=== PATIENT | female | born 1990 | race African-American/Black ===

== ENCOUNTER 2019-11-02 20:36 | Inpatient (IN) ==
[2019-11-02] MEDS ORDERED: ONDANSETRON 4 MG/2 ML VIAL IV ONE (21:39)
[2019-11-02] MEDS ORDERED: LACTATED RINGERS 1,000 ML IV ONE (21:39)
[2019-11-02] MEDS ORDERED: MEPERIDINE 50 MG/1 ML VIAL IV ONE (21:39)
[2019-11-03] MEDS ORDERED: MEPERIDINE 50 MG/1 ML VIAL IV PRN (00:07)
[2019-11-03] MEDS ORDERED: LACTATED RINGERS 1,000 ML IV SCH ×2 (00:30→02:00)
[2019-11-03] MEDS ORDERED: ONDANSETRON 4 MG/2 ML VIAL IV PRN (01:39)
[2019-11-03] MEDS ORDERED: CITRIC ACID/SODIUM CITRATE 30 ML UDCUP PO ONE (01:44)
[2019-11-03] MEDS ORDERED: NALOXONE 0.4 MG/ML VIAL IV PRN (01:44)
[2019-11-03] MEDS ORDERED: FAMOTIDINE 20 MG/2 ML VIAL IV ONE (01:44)
[2019-11-03] MEDS ORDERED: diphenhydrAMINE 50 MG/1 ML VIAL IV PRN ×2 (01:44)
[2019-11-03] MEDS ORDERED: hydrOXYzine HCL 25 MG/1 ML VIAL IM PRN (01:44)
[2019-11-03] MEDS ORDERED: ONDANSETRON 4 MG/2 ML VIAL IV ONE (01:44)
[2019-11-03] MEDS ORDERED: PROMETHAZINE 25 MG/1 ML VIAL IM ONE (01:44)
[2019-11-03] MEDS ORDERED: ePHEDrine 50 MG/ML VIAL IV PRN (01:44)
[2019-11-03] MEDS ORDERED: fentaNYL 2 MCG/ROPIV 0.2% EPID 100 ML EPIDURAL SCH (02:00)
[2019-11-03] MEDS ORDERED: ALUMINUM/MAGNES/SIMETH MAX STR 30 ML UDCUP PO PRN (02:11)
[2019-11-03 02:13] LABS: Basophils % 0.1 % (0.0-0.8); Hematocrit 30.4 VOL% (35.7-47.0); Hemoglobin 9.3 GM/DL (12.0-16.0); Immature Granulocytes % 0.8 %; Immature Granulocytes Absolute 0.06 #; Lymphocytes # 0.6 10*3/uL (1.4-4.0); Lymphocytes % 7.1 % (21.3-54.2); Mean Corpuscular HGB Conc 30.6 GM/DL (32-36); Mean Corpuscular Volume 78.8 FL (87-102); Mean Platelet Volume 10.2 FL (9.6-12.0); Monocytes % 2.4 % (1.7-12.7); Neutrophils % 89.6 % (38.7-73.9); Platelet Count 343 T/CUMM (130-400); Red Blood Count 3.86 MC/CUMM (3.8-5.5); Red Cell Distribution Width 15.9 % (9.3-17.3)
[2019-11-03 02:39] LABS: Alanine Aminotransferase 25 U/L (13-56); Albumin 2.5 G/DL (3.4-5.0); Alkaline Phosphatase 196 U/L (45-117); Aspartate Amino Transferase 24 U/L (0-37); Bilirubin,Total < 0.39 MG/DL (0.2-1.0); Blood Urea Nitrogen 7 MG/DL (7-18); Calcium 9.4 MG/DL (8.5-10.1); Estimated Glom Filtration Rate 157 ML/MIN; Glucose 89 MG/DL (74-106); Osmolality,Calculated 269.8 MOS/KG (273-304); Total Protein 7.3 G/DL (6.4-8.3)
[2019-11-03 04:57] LABS: Apearance,Urine CLEAR (Clear); Bilirubin,Urine Negative (Negative); Blood, Urine Negative (Negative); Glucose,Urine (UA) Negative (Negative); Ketones,Urine 80 mg/dL (Negative); Mucus,Urine Occasional /LPF (Occasional); Nitrite,Urine Negative (Negative); Protein,Urine Negative; Squamous Epithelial Cell,Urine Occasional /HPF (0-10); Urine Color Yellow (Yellow); Urine Specific Gravity 1.014 (1.001-1.035); Urine Urobilinogen < 2.0 EU/DL (0.2-1.0)
[2019-11-03] MEDS ORDERED: CARBOPROST TROMETHAMINE 250 MCG/ML AMP IM ONE (06:31)
[2019-11-03] MEDS ORDERED: TRANEXAMIC ACID 1,000 MG/10 ML VIAL ONE (06:31)
[2019-11-03] MEDS ORDERED: miSOPROStoL 200 MCG TABLET ONE (06:31)
[2019-11-03] MEDS ORDERED: METHYLERGONOVINE 0.2 MG/1 ML AMP ONE (06:31)
[2019-11-03] MEDS ORDERED: OXYTOCIN/LR 20 UNIT/1,000 ML BAG IV ONE ×2 (06:31→09:21)
[2019-11-03 07:19] LABS: Cord Arterial Blood HCO3 13.5 MMOL/L; Cord Venous Blood HCO3 19.2 MMOL/L; Cord Venous Blood PCO2 56.5 MMHG; Cord Venous Blood PO2 25.6 MMHG
[2019-11-03] MEDS ORDERED: ACETAMINOPHEN 325 MG TABLET PO PRN (09:21)
[2019-11-03] MEDS ORDERED: RHO(D) IMMUNE GLOBULIN 300 MCG SYRINGE IM ONE (09:21)
[2019-11-03] MEDS ORDERED: LANOLIN 50% CREAM 0.3 OZ TUBE TOP PRN (09:21)
[2019-11-03] MEDS ORDERED: BISACODYL 10 MG SUPP RECTAL PRN (09:21)
[2019-11-03] MEDS ORDERED: BENZOCAINE 20%/MENTHOL 0.5% SPRAY 56 GM CAN TOP PRN (09:21)
[2019-11-03] MEDS ORDERED: WITCH HAZEL PADS 100/JAR TOP PRN (09:21)
[2019-11-03] MEDS ORDERED: MEASLES/MUMPS/RUBELLA VACCINE 0.5 ML VIAL SUBCUT ONE (09:21)
[2019-11-03] MEDS ORDERED: HYDROCORTISONE 2.5% RECTAL CREAM 30 GM TUBE TOP PRN (09:21)
[2019-11-03] MEDS ORDERED: oxyCODONE/ACETAMINOPHEN 5-325 MG TABLET PO PRN (09:21)
[2019-11-03] MEDS ORDERED: DIPH/TET/ACEL PERT BOOSTER VACCINE 0.5 ML VIAL IM ONE (09:21)
[2019-11-03] MEDS: IBUPROFEN 800 MG TABLET PO PRN ×2 (13:35→21:41)
[2019-11-03] MEDS: ALUMINUM/MAGNES/SIMETH MAX STR 30 ML UDCUP PO PRN (19:36)
[2019-11-04 05:56] LABS: Basophils % 0.4 % (0.0-0.8); Eosinophils # 0.1 10*3/uL (0.0-0.87); Eosinophils % 0.8 % (0.00-10.9); Hematocrit 28.2 VOL% (35.7-47.0); Hemoglobin 8.8 GM/DL (12.0-16.0); Immature Granulocytes % 0.7 %; Immature Granulocytes Absolute 0.07 #; Lymphocytes # 1.6 10*3/uL (1.4-4.0); Lymphocytes % 16.2 % (21.3-54.2); Mean Corpuscular HGB Conc 31.2 GM/DL (32-36); Mean Corpuscular Volume 78.3 FL (87-102); Mean Platelet Volume 10.4 FL (9.6-12.0); Monocytes % 6.7 % (1.7-12.7); Neutrophils % 75.2 % (38.7-73.9); Platelet Count 316 T/CUMM (130-400); Red Cell Distribution Width 16.1 % (9.3-17.3); White Blood Count 9.7 T/CUMM (4-12)
[2019-11-04] MEDS: IBUPROFEN 800 MG TABLET PO PRN (08:53)
[2019-11-04] MEDS: DOCUSATE SODIUM 100 MG CAPSULE PO SCH ×2 (09:10→21:06)
[2019-11-04] MEDS: FERROUS SULFATE 325 MG TABLET PO SCH ×2 (09:10→21:06)
[2019-11-04] MEDS: ALUMINUM/MAGNES/SIMETH MAX STR 30 ML UDCUP PO PRN (22:32)
[2019-11-04] MEDS: PANTOPRAZOLE 40 MG TABLET PO SCH (22:33)
[2019-11-04] MEDS: BUTALBITAL/ACETAMIN/CAFFEINE 50-325-40 MG TABLET PO PRN (22:33)
[2019-11-05] MEDS: IBUPROFEN 800 MG TABLET PO PRN ×2 (02:37→17:40)
[2019-11-05] MEDS: ALUMINUM/MAGNES/SIMETH MAX STR 30 ML UDCUP PO PRN ×2 (02:37→23:09)
[2019-11-05] MEDS: oxyCODONE/ACETAMINOPHEN 5-325 MG TABLET PO PRN ×2 (02:38→17:40)
[2019-11-05] MEDS: PANTOPRAZOLE 40 MG TABLET PO SCH (08:58)
[2019-11-05] MEDS: FERROUS SULFATE 325 MG TABLET PO SCH ×2 (08:58→19:30)
[2019-11-05] MEDS: DOCUSATE SODIUM 100 MG CAPSULE PO SCH ×2 (08:58→20:06)
[2019-11-05] MEDS ORDERED: NEOSTIGMINE 10 MG/10 ML VIAL IV ONE (09:03)
[2019-11-05] MEDS ORDERED: ATROPINE 1 MG/10 ML SYRINGE IV ONE (09:09)
[2019-11-05] MEDS ORDERED: ATROPINE 0.4 MG/1 ML VIAL ONE (09:18)
[2019-11-05] MEDS ORDERED: NEOSTIGMINE 10 MG/10 ML VIAL ONE (09:18)
[2019-11-05] MEDS: BUTALBITAL/ACETAMIN/CAFFEINE 50-325-40 MG TABLET PO PRN (11:36)
[2019-11-05] MEDS ORDERED: SODIUM CHLORIDE 0.9% 250 ML IV ONE (13:22)
[2019-11-05] MEDS ORDERED: SODIUM CHLORIDE 0.9% 1,000 ML IV SCH (13:30)
[2019-11-05] MEDS ORDERED: MIDAZOLAM 2 MG/2 ML VIAL ONE (15:02)
[2019-11-06] MEDS: IBUPROFEN 800 MG TABLET PO PRN (04:22)
[2019-11-06 07:56] VITALS: BP 126/87
[2019-11-06] MEDS: DOCUSATE SODIUM 100 MG CAPSULE PO SCH (09:56)
[2019-11-06] MEDS: PANTOPRAZOLE 40 MG TABLET PO SCH (11:00)
[2019-11-06] MEDS: FERROUS SULFATE 325 MG TABLET PO SCH (11:00)
== END 2019-11-06 16:45 | disposition home or self-care (01) | DRG 560 ==
LOC: N.LDOUT 20:36 → N.LD 20:38 → N.OB 11-03 12:11
PROVIDERS: ADMIT Obstetrics & Gynecology; ATTEND Obstetrics & Gynecology

== ENCOUNTER 2021-03-24 01:49 | Inpatient (IN) ==
[2021-03-24] MEDS ORDERED: ONDANSETRON 4 MG/2 ML VIAL IV PRN ×2 (02:10→15:24)
[2021-03-24] MEDS ORDERED: MEPERIDINE 50 MG/1 ML VIAL IV PRN (02:10)
[2021-03-24 02:48] LABS: Basophils % 0.3 % (0.0-0.8); Eosinophils # 0.1 10*3/uL (0.0-0.87); Eosinophils % 1.1 % (0.00-10.9); Hematocrit 32.8 VOL% (35.7-47.0); Hemoglobin 10.6 GM/DL (12.0-16.0); Immature Granulocytes Absolute 0.07 #; Lymphocytes # 1.3 10*3/uL (1.4-4.0); Lymphocytes % 18.4 % (21.3-54.2); Mean Corpuscular HGB Conc 32.3 GM/DL (32-36); Mean Corpuscular Volume 82.2 FL (87-102); Mean Platelet Volume 9.9 FL (9.6-12.0); Monocytes % 6.3 % (1.7-12.7); Neutrophils % 72.9 % (38.7-73.9); Platelet Count 307 T/CUMM (130-400); Red Blood Count 3.99 MC/CUMM (3.8-5.5); Red Cell Distribution Width 15.5 % (9.3-17.3); White Blood Count 7.2 T/CUMM (4-12)
[2021-03-24] MEDS ORDERED: ALUMINUM/MAGNES/SIMETH MAX STR 30 ML UDCUP PO PRN (02:52)
[2021-03-24] MEDS: LACTATED RINGERS 1,000 ML IV SCH ×3 (02:53→13:31)
[2021-03-24] MEDS: OXYTOCIN/LR 20 UNIT/1,000 ML BAG IV SCH ×2 (03:04→08:04)
[2021-03-24 06:57] LABS: Albumin 2.7 G/DL (3.4-5.0); Bilirubin,Total 0.9 MG/DL (0.20-1.00); Osmolality,Calculated 268.8 MOS/KG (273-304); Potassium 3.5 MMOL/L (3.5-5.1); Total Protein 7.1 G/DL (6.4-8.2)
[2021-03-24] MEDS ORDERED: NALOXONE 0.4 MG/ML VIAL IV PRN (08:23)
[2021-03-24] MEDS ORDERED: CITRIC ACID/SODIUM CITRATE 30 ML UDCUP PO ONE (08:23)
[2021-03-24] MEDS ORDERED: FAMOTIDINE 20 MG/2 ML VIAL IV ONE (08:23)
[2021-03-24] MEDS ORDERED: diphenhydrAMINE 50 MG/1 ML VIAL IV PRN ×2 (08:23)
[2021-03-24] MEDS ORDERED: LACTATED RINGERS 1,000 ML IV ONE (08:23)
[2021-03-24] MEDS ORDERED: fentaNYL 2 MCG/ROPIV 0.2% EPID 100 ML EPIDURAL SCH (08:30)
[2021-03-24] MEDS: ePHEDrine 50 MG/ML VIAL IV PRN ×2 (09:51→10:02)
[2021-03-24 11:26] LABS: Bilirubin,Urine Negative (Negative); Blood, Urine Negative (Negative); Glucose,Urine (UA) Negative (Negative); Ketones,Urine 20 mg/dL (Negative); Mucus,Urine Occasional /LPF (Occasional); Nitrite,Urine Negative (Negative); Protein,Urine Negative; RBC,Urine <1 /HPF (0-4); Squamous Epithelial Cell,Urine Occasional /HPF (0-10); Urine Appearance CLEAR (Clear); Urine Color Yellow (Yellow); Urine Specific Gravity 1.008 (1.001-1.035); Urine Urobilinogen < 2.0 EU/DL (0.2-1.0)
[2021-03-24] MEDS ORDERED: BUTORPHANOL 2 MG/ML VIAL IV PRN (13:45)
[2021-03-24] MEDS ORDERED: miSOPROStoL 200 MCG TABLET ONE (14:26)
[2021-03-24] MEDS ORDERED: TRANEXAMIC ACID 1,000 MG/10 ML VIAL ONE (14:26)
[2021-03-24] MEDS ORDERED: CARBOPROST TROMETHAMINE 250 MCG/ML AMP IM ONE (14:27)
[2021-03-24] MEDS ORDERED: METHYLERGONOVINE 0.2 MG/1 ML AMP ONE (14:27)
[2021-03-24] MEDS ORDERED: fentaNYL 100 MCG/2 ML VIAL ONE (14:51)
[2021-03-24] MEDS ORDERED: LIDOCAINE MPF 2% /EPI 20 ML VIAL ONE (14:51)
[2021-03-24] MEDS ORDERED: METHYLERGONOVINE 0.2 MG/1 ML AMP IM ONE (15:14)
[2021-03-24] MEDS ORDERED: oxyCODONE/ACETAMINOPHEN 5-325 MG TABLET PO PRN (15:24)
[2021-03-24] MEDS ORDERED: RHO(D) IMMUNE GLOBULIN 300 MCG SYRINGE IM ONE (15:24)
[2021-03-24] MEDS ORDERED: DIPH/TET/ACEL PERT BOOSTER VACCINE 0.5 ML VIAL IM ONE (15:24)
[2021-03-24] MEDS ORDERED: WITCH HAZEL PADS 100/JAR TOP PRN (15:24)
[2021-03-24] MEDS ORDERED: LANOLIN 50% CREAM 0.3 OZ TUBE TOP PRN (15:24)
[2021-03-24] MEDS ORDERED: HYDROCORTISONE 2.5% RECTAL CREAM 30 GM TUBE TOP PRN (15:24)
[2021-03-24] MEDS ORDERED: OXYTOCIN/LR 20 UNIT/1,000 ML BAG IV ONE (15:24)
[2021-03-24] MEDS ORDERED: BISACODYL 10 MG SUPP RECTAL PRN (15:24)
[2021-03-24] MEDS ORDERED: ACETAMINOPHEN 325 MG TABLET PO PRN (15:24)
[2021-03-24] MEDS ORDERED: MEASLES/MUMPS/RUBELLA VACCINE 0.5 ML VIAL SUBCUT ONE (15:24)
[2021-03-24] MEDS ORDERED: BENZOCAINE 20%/MENTHOL 0.5% SPRAY 56 GM CAN TOP PRN (15:24)
[2021-03-24 15:41] LABS: Cord Venous Blood PCO2 37.5 MMHG; Cord Venous Blood PO2 34.8
[2021-03-24] MEDS ORDERED: diphenhydrAMINE 2% CREAM 28 GM TUBE TOP PRN (18:30)
[2021-03-24] MEDS ORDERED: diphenhydrAMINE CAP 25 MG CAPSULE PO PRN (18:31)
[2021-03-24] MEDS: DOCUSATE SODIUM 100 MG CAPSULE PO SCH (20:58)
[2021-03-25] MEDS: oxyCODONE/ACETAMINOPHEN 5-325 MG TABLET PO PRN ×2 (01:36→16:46)
[2021-03-25 05:18] LABS: Basophils % 0.2 % (0.0-0.8); Eosinophils % 0.3 % (0.00-10.9); Hematocrit 27.9 VOL% (35.7-47.0); Hemoglobin 8.8 GM/DL (12.0-16.0); Immature Granulocytes % 0.8 %; Immature Granulocytes Absolute 0.08 #; Lymphocytes # 0.9 10*3/uL (1.4-4.0); Lymphocytes % 9.5 % (21.3-54.2); Mean Corpuscular HGB Conc 31.5 GM/DL (32-36); Neutrophils % 83.2 % (38.7-73.9); Platelet Count 250 T/CUMM (130-400); Red Blood Count 3.36 MC/CUMM (3.8-5.5); Red Cell Distribution Width 15.7 % (9.3-17.3); White Blood Count 9.5 T/CUMM (4-12)
[2021-03-25] MEDS: IBUPROFEN 800 MG TABLET PO PRN ×3 (05:32→21:53)
[2021-03-25] MEDS: DOCUSATE SODIUM 100 MG CAPSULE PO SCH ×2 (08:24→20:41)
[2021-03-25] MEDS: FERROUS SULFATE 325 MG TABLET PO SCH ×2 (08:24→20:42)
[2021-03-26] MEDS: IBUPROFEN 800 MG TABLET PO PRN (06:17)
[2021-03-26] MEDS: DOCUSATE SODIUM 100 MG CAPSULE PO SCH (08:36)
[2021-03-26] MEDS: FERROUS SULFATE 325 MG TABLET PO SCH (08:36)
[2021-03-26] MEDS ORDERED: ALUMINUM/MAGNES/SIMETH MAX STR 30 ML UDCUP PO PRN (09:50)
[2021-03-26] MEDS: oxyCODONE/ACETAMINOPHEN 5-325 MG TABLET PO PRN (11:44)
[2021-03-26 14:28] VITALS: BP 117/69
== END 2021-03-26 14:35 | disposition home or self-care (01) | DRG 560 ==
LOC: N.LD 01:49 → N.OB 18:15
PROVIDERS: ADMIT Obstetrics & Gynecology; ATTEND Obstetrics & Gynecology